=== PATIENT | male | born 1950 | race Two or more races ===

== ENCOUNTER 2020-04-11 12:33 | Inpatient (IN) | payer OTHER ==
[~2020-04-11] VITALS: Ht 180.3 cm; Wt 61.6 kg
[2020-04-11] VITALS (7 sets, daily range): BP systolic 122–157; BP diastolic 44–74
[2020-04-11 13:28] LABS: Basophils # (auto) 0.1 10 ^3/uL (0-0.2); Eosinophils # (auto) 0.5 10 ^3/uL (0-0.8); White Blood Cell 13.6 10^3/uL (4.4-10.8)
[2020-04-11 13:32] LABS: Basophils % (auto) 1.1 % (0.0-2.0); Eosinophils % (auto) 3.7 % (0.0-7.0); Lymphocytes # (auto) 2.3 10 ^3/uL (0.4-5.4); Lymphocytes % (auto) 16.8 % (10.0-50.0); Mean Corpuscular Hemoglobin 30.9 pg (28.0-32.0); Mean Corpuscular Hgb Conc. 34.2 g/dL (32.0-36.0); Mean Corpuscular Volume 90.3 fL (80.0-100.0); Monocytes % (auto) 7.6 % (0.0-12.0); Neutrophils # (auto) 9.6 10 ^3/uL (1.6-8.6); Neutrophils % (auto) 70.8 % (37.0-80.0); Platelet Count (auto) 316 10^3/uL (140-450); Red Blood Cells 1.55 10^6/uL (4.5-5.90); Red Cell Distribution Width 17.1 % (11.8-14.3)
[2020-04-11 13:44] LABS: Albumin 3.4 g/dL (3.4-5.0); BUN/Creatinine Ratio 29.4; INR 1.08 (0.9-1.15); Magnesium 1.7 mg/dL (1.6-2.6); Partial Thromboplastin Time 23.7 sec (23.0-31.2); Potassium 3.8 mmol/L (3.5-5.1)
[2020-04-11 13:46] LABS: Hemoglobin 4.8 g/dL (13.5-17.5)
[2020-04-11 13:49] LABS: Bilirubin, Total 0.3 mg/dL (0.2-1.0); Total Protein 6.8 g/dL (6.4-8.2)
[2020-04-11] MEDS ORDERED: PANTOPRAZOLE 40 MG/10 ML VIAL INJ IV ONE (14:45)
[2020-04-11] MEDS ORDERED: PANTOPRAZOLE 40mg/50ML NS AE 50 ML IV ONE (14:45)
[2020-04-11] MEDS ORDERED: LORazepam 2MG/ML-1ML VIAL IV PRN (17:45)
[2020-04-11] MEDS ORDERED: NITROGLYCERIN 0.4 MG SL TAB SL PRN (17:45)
[2020-04-11] MEDS ORDERED: D5W/SOD CHLO 0.9% 1,000 ML IV SCH (17:45)
[2020-04-11] MEDS ORDERED: MORPHINE SULF INJ 2 MG/ML SYRINGE 1ML IV PRN (17:45)
[2020-04-11] MEDS: PANTOPRAZOLE 40 MG/10 ML VIAL INJ IV SCH (22:00)
[2020-04-11] MEDS: MORPHINE SULF INJ 2 MG/ML SYRINGE 1ML IV PRN (23:24)
[2020-04-12] VITALS (10 sets, daily range): BP systolic 139–162; BP diastolic 67–77
[2020-04-12] MEDS: MORPHINE SULF INJ 2 MG/ML SYRINGE 1ML IV PRN ×3 (02:33→20:52)
[2020-04-12 06:13] LABS: Hematocrit 24.9 % (41.0-53.0); Hemoglobin 8.8 g/dL (13.5-17.5); Mean Corpuscular Hemoglobin 31.4 pg (28.0-32.0); Mean Corpuscular Hgb Conc. 35.3 g/dL (32.0-36.0); Mean Corpuscular Volume 88.8 fL (80.0-100.0); Platelet Count (auto) 258 10^3/uL (140-450); Red Cell Distribution Width 14.8 % (11.8-14.3); White Blood Cell 10.5 10^3/uL (4.4-10.8)
[2020-04-12 06:28] LABS: Basophils % (manual) 0 (0.0-2.0); Blast Cells 0; Metamyelocytes % 0; Myelocytes % 0; Promyelocytes % 0; Reactive Lymphocytes 0
[2020-04-12 06:44] LABS: Potassium 3.6 mmol/L (3.5-5.1)
[2020-04-12 06:54] LABS: Albumin 3.2 g/dL (3.4-5.0); BUN/Creatinine Ratio 26.1; Bilirubin, Total 0.6 mg/dL (0.2-1.0); Calcium 8.8 mg/dL (8.5-10.1); Total Protein 6.2 g/dL (6.4-8.2)
[2020-04-12 07:02] LABS: Band Neutrophils % (manual) 2; Lymphocytes % (manual) 14 (10.0-50.0); Monocytes % (manual) 5 (0-12)
[2020-04-12 07:03] LABS: Eosinophils % (manual) 10 (0-7)
--- NOTE | 2020-04-12 07:30 | NUR ---
Opening Shift Note Assumed patient care from [facility] RN, Kim. Patient currently sitting up in bed. Patient is AOx4. Per patient, he is continuing to have aching pain on left chest, per patient, he fell on his left side two days ago. Patient denies shortness of breath at this time, respirations are even and unlabored. Patient is aware of NPO status and need for urine sample. Patient verbalized understanding at this time.
[2020-04-12] MEDS: PANTOPRAZOLE 40 MG/10 ML VIAL INJ IV SCH ×2 (08:54→20:51)
[2020-04-12] MEDS: LABETALOL HCL 5 MG/ML 4ML SYRINGE IV PRN (09:30)
--- NOTE | 2020-04-12 10:00 | NUR ---
at Bedside Dr. Vinson at bedside discussing plan of care with Patient. Per Dr. Vinson obtain nephrology consult from rehabilitation manager nephrology.
--- NOTE | 2020-04-12 10:50 | NUR ---
at Bedside Dr. Araya at bedside discussing plan of care with patient. New orders received for stool occult.
--- NOTE | 2020-04-12 11:00 | NUR ---
WOUND CARE NOTE: IN TO SEE PATIENT AT THIS TIME PER WOUND CARE CONSULT REQUEST. PATIENT RECENTLY ADMITTED TO [facility] WITH DIAGNOSIS OF RENAL FAILURE, ANEMIA, GI BLEED. CURRENT CARLA SCORE IS 14. PATIENT ABLE TO SELF TURN/REPOSITION SELF. HE HAS LONGTIME HISTORY WITH DM. WOUND PHOTOS TAKEN UPON ADMIT BY BEDSIDE NURSE FOR REFERENCE. 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 NO OPEN OR DRAINING AREAS NOTED. LEFT OPEN TO AIR. LEFT # 1 TOE HAS BLACK ESCHAR DFU. NO OPEN DRAINING AREAS NOTED. LEFT OPEN TO AIR. HE HAS TWO VERY SMALL PARTIAL THICKNESS WOUNDS TO THE SACRUM/BUTTOCKS, WITH A 0.2 X0.2 CM WOUND TO THE LEFT SACRUM, 0.3 X 0.3 CM TO THE RIGHT. APPLIED ZGUARD, OPTIFOAM GENTLE SACRAL DRESSING. PERIWOUND SKIN IS SLOW TO MILLA AT INTRAGLUTEAL AREAS. NO OTHER WOUNDS SEEN AT THIS TIME. RECOMMEND: FREQUENT TURN SCHEDULE Q 2 HOURS, PRN CONDITION PERMITS, WITH PRESSURE REDISTRIBUTION USING PILLOWS/WEDGES, ELEVATION OF BLE UP ON PILLOWS TO OFFLOAD HEELS, BID/PRN APPLICATION WITH ZGUARD, OPTIFOAM GENTLE SACRAL DRESSING, DIETARY CONSULT, SKIN/WOUND CARE PLAN, CONTINUED MONITORING BY WOUND CARE TEAM. Addendum: 04/12/20 at 1758 by Theodora Christensen RN Amended: Links added.
--- NOTE | 2020-04-12 11:19 | NUR ---
Nutrition Consult Consider changing diet to CCHO 60g, Renal Specific 60g protein, 2g K and Na, low phos Consider adding Nephrovite and Vitamin C 500 mg BID Est energy needs 0493-0354 kcal (25-30 kcal/kg BW 61.6kg) Est protein needs 49-55g (0.8-0.9g/kg BW 61.6kg r/t CKD/SENA no HD) Will reassess prn. Addendum: 04/12/20 at [address] Amended: Links added.
--- NOTE | 2020-04-12 11:30 | NUR ---
Wound Care medical records secretary, Alisia at bedside. Per Alisia, continue with Zgaurd and optifoam to sacral area.
--- NOTE | 2020-04-12 11:40 | NUR ---
Sacral Dressing Partial bed bath performed with assistance from al Robison. Sacral area cleaned, Z guard and optifoam applied; offset weight with pillow-patient positioned to right side. Safety precautions in place, call light within reach. Will continue to monitor q1hr and PRN.
[2020-04-12] MEDS: D5W/SOD CHLO 0.9% 1,000 ML IV SCH ×2 (13:59→20:51)
--- NOTE | 2020-04-12 14:14 | NUR ---
at Station Dr. Barbosa at station. Per , continue with fluid administration at this time.
--- NOTE | 2020-04-12 15:35 | NUR ---
Urine Sample Urine sample sent to lab; attempted to call but no answer at this time. Clear, yellow urine, no odor noted. Emptied 650cc from urinal. No bowel movement at this time, patient is aware to call when he has a bowel movement for stool sample. Patient verbalized understanding. Patient repositioned in bed to right side at this time. No signs of distress noted, respirations even and unlabored. Will continue to monitor q1hr and PRN; safety precautions are in place, call light within reach.
[2020-04-13 05:00] VITALS: BP 172/79
[2020-04-13] MEDS: LABETALOL HCL 5 MG/ML 4ML SYRINGE IV PRN ×3 (05:34→14:55)
[2020-04-13 06:30] LABS: Hematocrit 22.2 % (41.0-53.0); Hemoglobin 7.7 g/dL (13.5-17.5); Mean Corpuscular Hemoglobin 31.3 pg (28.0-32.0); Mean Corpuscular Hgb Conc. 34.9 g/dL (32.0-36.0); Mean Corpuscular Volume 89.7 fL (80.0-100.0); Platelet Count (auto) 250 10^3/uL (140-450); Red Blood Cells 2.47 10^6/uL (4.5-5.90); White Blood Cell 10.5 10^3/uL (4.4-10.8)
[2020-04-13 06:35] LABS: Band Neutrophils % (manual) 0; Basophils % (manual) 0 (0.0-2.0); Blast Cells 0; Metamyelocytes % 0; Myelocytes % 0; Promyelocytes % 0; Reactive Lymphocytes 0
[2020-04-13 06:48] LABS: BUN/Creatinine Ratio 19.4; Calcium 8.3 mg/dL (8.5-10.1); Potassium 4.1 mmol/L (3.5-5.1)
[2020-04-13 07:16] LABS: Eosinophils % (manual) 15 (0-7); Lymphocytes % (manual) 19 (10.0-50.0); Monocytes % (manual) 8 (0-12)
--- NOTE | 2020-04-13 07:30 | NUR ---
Opening Shift Note Assumed patient care from NOC Rn. Patient currently sitting up in bed for breakfast. No signs of distress at this time. Patient placed on SCDs per orders on 04/12. Respirations even and unlabored. Will continue to monitor q1hr and PRN.
[2020-04-13 09:00] VITALS: BP 167/76
[2020-04-13] MEDS: PANTOPRAZOLE 40 MG/10 ML VIAL INJ IV SCH ×2 (09:48→21:58)
[2020-04-13] MEDS ORDERED: GOLYTELY 4L KIT PO ONE (10:00)
--- NOTE | 2020-04-13 10:00 | NUR ---
at Bedside Dr. Araya at bedside discussing plan of care with patient. Per Dr. Araya, recommends endoscopy and colonoscopy for tomorrow. Patient is AOx4 and agreeable at this time. Patient's daughter, Magali, has been notified and is also agreeable with plan of care.
[2020-04-13 13:00] VITALS: BP 90/55
--- NOTE | 2020-04-13 13:54 | NUR ---
Bowel Prep Dudleyly provided to patient for bowel prep. Educated need for bowel prep for colonoscopy tomorrow. Patient's daughter is on phone, teaching reinforced with her. Both patient and daughter verbalized understanding. Patient encouraged to drink often, will continue to reinforce bowel prep. Will continue to monitor q1hr and PRN. Addendum: 04/13/20 at 1400 by TARYN BOO RN RN Daughter:
[2020-04-13] MEDS: D5W/SOD CHLO 0.9% 1,000 ML IV SCH (14:45)
--- NOTE | 2020-04-13 14:55 | NUR ---
BP Blood Pressure reported by MAGDALENE Freedman. BP currently 171/80 HR 73; BP medication administered, see EMAR. Fluids stopped at this time. Dr. Vinson aware; per Dr. Vinson, reassess at 1600, if BP does not decrease, give clonidine 0.2mg PO once.
--- NOTE | 2020-04-13 15:49 | NUR ---
BP Reassessed BP Reassessed BP 167/73. Will administer medication per MD orders. Addendum: 04/13/20 at 1605 by TARYN BOO RN RN Clonidine administered, see DWAYNE.
[2020-04-13] MEDS ORDERED: cloNIDine HCL 0.1 MG TAB PO ONE (16:00)
[2020-04-13 17:00] VITALS: BP 162/73
--- NOTE | 2020-04-13 17:00 | NUR ---
BP Reassessed Blood pressure reassessed post Clonidine administration. BP currently 136/77, HR 65. No signs of distress at this time, respirations even and unlabored, will continue to monitor q1hr and PRN. Safety precautions in place.
--- NOTE | 2020-04-13 18:29 | NUR ---
Consents/COVID Obtained consent for procedure per Dr. Araya orders. Patient and daughter, Magali (via telephone), verbalized understanding of risks and benefits of procedure as well as it's purpose as explained by MD. No objections at this time. Consents signed and covid swab obtained. Patient tolerated covid swab well, no signs of distress at this time. COVID swab signed in to lab, rags laborer aware. Patient encouraged to continue drinking Golytely as he is 1/3 finished at this time. Will continue to monitor q1hr and PRN.
--- NOTE | 2020-04-13 19:11 | NUR ---
Closing Shift Note Endorsed patient care from [facility] Nuris CASTRO. RN aware of pending EGD and colonoscopy tomorrow. Dr. Araya at station; per Dr. Araya, stool culture no longer needed at this time.
--- NOTE | 2020-04-13 19:15 | NUR ---
Opening Shift Note Assumed care of patient, awake and alert. No S/S of distress/SOB or pain. Instructed on POC and to call for assist PRN, will continue to monitor for changes Q1hr and PRN. patient in the lowest possible position with call light within reach. patient drinking golytley at this time. Encouraged to call to use the bathroom at this time.
[2020-04-13 20:00] VITALS: BP 143/77
--- NOTE | 2020-04-13 20:49 | NUR ---
Patient wanted his blood sugar checked, patient has a history of diabetes. Patients blood sugar at this time is 190mg/dl. No interventions needed at this time. Will continue to monitor patient.
[2020-04-13 22:00] VITALS: BP 149/79
--- NOTE | 2020-04-13 23:00 | NUR ---
Patient cleaned and changed, zgaurd applied to sacrum, no optifoam placed on at this time. Patient wanted to be placed back on bedpan stating that he had to poop some more.
--- NOTE | 2020-04-13 23:23 | NUR ---
Patient stated that he was feeling dizzy, blood sugar checked reading 141mg/dl. Patient currently drinking golytley for colonoscopy/egd to be done on 04/14. Patients blood pressure checked reading 143/77. Patient known to have low hgb. Will continue to monitor patient.
[2020-04-14] MEDS: D5W/SOD CHLO 0.9% 1,000 ML IV SCH ×3 (03:15→23:29)
--- NOTE | 2020-04-14 03:30 | NUR ---
Patient cleaned and changed. Patient still drinking golytley in preparation for colonoscopy and EGD. Will continue to monitor patient.
[2020-04-14 05:00] VITALS: BP 160/76
[2020-04-14] MEDS: LABETALOL HCL 5 MG/ML 4ML SYRINGE IV PRN ×4 (05:09→22:01)
[2020-04-14] MEDS ORDERED: GOLYTELY 4L KIT PO ONE (06:00)
--- NOTE | 2020-04-14 06:10 | NUR ---
Blood pressure rechecked per protocol after giving labetalol. Blood pressure reading 172/75 with a heart rate of 74. Hospitalist paged.
--- NOTE | 2020-04-14 06:52 | NUR ---
PATIENT STATED THAT HE WOULD NOT DRINK ANYMORE GOLYTLEY UNTIL HIS BLOOD PRESSURE WAS FIXED. AWAITING CALLBACK FROM .
[2020-04-14 08:34] VITALS: BP 156/77
[2020-04-14] MEDS: PANTOPRAZOLE 40 MG/10 ML VIAL INJ IV SCH (09:48)
[2020-04-14] MEDS ORDERED: MIDAZOLAM HCL 5 MG/ML-1ML VIAL ONE (10:05)
[2020-04-14] MEDS ORDERED: LIDOCAINE VISCOUS 2% 15ML UD ONE (10:05)
[2020-04-14] MEDS ORDERED: SODIUM CHLORIDE LOCK 10 ML ONE (10:05)
[2020-04-14] MEDS ORDERED: fentaNYL CITRATE 100 MCG/2 ML VL ONE (10:06)
[2020-04-14] MEDS ORDERED: diphenhdrAMINE HCL 50 MG/1 ML VL ONE (10:06)
[2020-04-14] MEDS ORDERED: FLUMAZENIL 0.1 MG/ML INJ 10ML MDV IV ONE (10:07)
[2020-04-14] MEDS ORDERED: NALOXONE HCL 0.4 MG/ML VIAL ONE (10:07)
[2020-04-14] MEDS ORDERED: PANTOPRAZOLE 40 MG TAB PO ONE (12:30)
[2020-04-14 13:00] VITALS: BP 149/91
[2020-04-14 16:35] VITALS: BP 177/86
[2020-04-14 18:44] LABS: Urine WBC None Seen /hpf (0 - 3)
[2020-04-14 19:20] LABS: Protein, Urine 35.5 mg/dL (0.0-11.9)
--- NOTE | 2020-04-14 19:30 | NUR ---
Opening shift note Received report from day shift RNRosangela who stated she attempted to place a Walker but she took it out as the patient wanted to use the urinal and demonstrate that he could. Patient is A&Ox4, respirations even and non-labored with no s/s of distress or c/o pain at this time. Urinal bedside containing 250 mL of pink tinged urine. Patient incontinent of dark brown liquid stool. Bathed patient, bedding/gown change with INTELLIGENT SYSTEMS ENGINEER. Noted small skin tear to right buttock. Placed patient in position of comfort. Bed in lowest locked position with 2 side rails up, call light within reach. Will continue to monitor Q1hr and PRN.
[2020-04-14 19:31] LABS: Urine Bacteria NONE SEEN /hpf (None Seen); Urine Blood 3+ /uL (Negative)
--- NOTE | 2020-04-14 20:30 | NUR ---
Patients daughter called Spoke with Magali. Discussed patient status and answered questions regarding discharge/procedures.
[2020-04-14 22:00] VITALS: BP 154/76
[2020-04-14] MEDS: PANTOPRAZOLE 40 MG TAB PO SCH (22:01)
[2020-04-15 05:00] VITALS: BP 151/74
--- NOTE | 2020-04-15 05:30 | NUR ---
Patient resting Respirations even and non-labored with no s/s of distress at this time.
[2020-04-15 07:15] LABS: Hematocrit 22.3 % (41.0-53.0); Hemoglobin 7.8 g/dL (13.5-17.5); Mean Corpuscular Hemoglobin 31.8 pg (28.0-32.0); Red Blood Cells 2.45 10^6/uL (4.5-5.90)
[2020-04-15 07:25] LABS: Mean Corpuscular Volume 90.8 fL (80.0-100.0); Platelet Count (auto) 241 10^3/uL (140-450); Red Cell Distribution Width 15.5 % (11.8-14.3); White Blood Cell 10.8 10^3/uL (4.4-10.8)
--- NOTE | 2020-04-15 07:27 | NUR ---
Closing shift note Patient resting without s/s of distress at this time. Endorsed care to day shift RNEvelia.
[2020-04-15 07:31] LABS: Band Neutrophils % (manual) 0; Basophils % (manual) 0 (0.0-2.0); Blast Cells 0; Metamyelocytes % 0; Myelocytes % 0; Promyelocytes % 0; Reactive Lymphocytes 0
[2020-04-15 07:51] LABS: Albumin 2.6 g/dL (3.4-5.0); Calcium 8.3 mg/dL (8.5-10.1); Potassium 3.9 mmol/L (3.5-5.1)
[2020-04-15 07:54] LABS: BUN/Creatinine Ratio 10.2; Bilirubin, Total 0.3 mg/dL (0.2-1.0); Eosinophils % (manual) 18 (0-7); Lymphocytes % (manual) 16 (10.0-50.0); Monocytes % (manual) 8 (0-12); Total Protein 5.3 g/dL (6.4-8.2)
--- NOTE | 2020-04-15 07:57 | NUR ---
Opening Shift Note Received report from second shift supervisor nurse, assumed care of patient. Patient awake and alert sitting on beside chair eating breakfast. No S/S of distress/SOB. Informed by COTTON OPENER of high blood pressure of 169/80. Medicated patient for high blood pressure. Instructed on POC and to call for assist, call light within reach. Will continue to monitor for changes Q1hr and PRN.
--- NOTE | 2020-04-15 08:30 | NUR ---
SPOKE TO FAMILY SPOKE TO DAUGHTER TAWANDA, PASSWORD VERIFIED. DESCRIBED PATIENT STATUS AND ANSWERED ANY QUESTIONS REGARDING THE PLAN OF CARE.
[2020-04-15] MEDS: LABETALOL HCL 5 MG/ML 4ML SYRINGE IV PRN ×3 (08:36→22:24)
[2020-04-15 09:00] VITALS: BP 169/80
--- NOTE | 2020-04-15 09:30 | NUR ---
Rechecked blood pressure Checked blood pressure post medication. BP now 142/69, will continue to monitor BP. Patient instructed to call if assistance needed, call light within reach.
[2020-04-15] MEDS: PANTOPRAZOLE 40 MG TAB PO SCH ×2 (09:47→22:23)
[2020-04-15] MEDS: D5W/SOD CHLO 0.9% 1,000 ML IV SCH (12:31)
--- NOTE | 2020-04-15 12:37 | NUR ---
Pt is an alert and oriented male that is marshallese-speaking only. Contacted pt's daughter, Magali,who stated pt lives out of the area ( [place]) with his son. Pt was visiting her because her brother had to go out of town for the weekend. Pt has a fww, w/c,cane, and shower chair in the home. Daughter states that pt has been declining in his health over the past few months and her brother needs more assistance with him. Provided information to [facility] program ) for In home care that will be covered by patient's [facility]. Pt could benefit from home health and bsc upon discharge. Requested order from nurse to obtain from physician and notified CM to obtain authorization as well as contracted vendor. Provided POA form for pt per daughter's request. Pt will have transportation home upon discharge. Addendum: 04/15/20 at 1310 by JENAE PRICE Amended: Links added.
--- NOTE | 2020-04-15 12:47 | NUR ---
Nutrition Followup Note Wt 61.6 kg Pt was asleep with no family at bedside at time of rounds. per records pt s/p EGD. pt is currently on CCHO 60 gm renal std diet with adequate Po of 75% x 2 per RN doc Est energy needs 3338-5579 kcal (25-30 kcal/kg BW 61.6kg) Est protein needs 49-55g (0.8-0.9g/kg BW 61.6kg r/t CKD/SENA no HD) Will reassess prn. Labs: BUN 22 H CREAT 2.15 H CA 8.3 L ALB 2.6 L GLU 226 H BM: Pt with 4 BMs yesterday diarr per Rn note Skin: BS 12 high risk, full details in certified social workers in health care note PES: Altered nutrition related lab values r/t current medical condition aeb elevated RFTs, hyperglycemia, hypoalb Comments Will continue to monitor PO status, skin status, pertinent labs and weight trends. Will f/u in 3-5 days Rec: 1) Consider diet of CCHO 60g, Renal Specific 2g K, 2gNa, low phos, 50g protein 2) Consider adding Nephrovite and Vitamin C 500 mg BID 3) continue current plan of care
[2020-04-15 13:00] VITALS: BP 151/76
--- NOTE | 2020-04-15 13:53 | NUR ---
1340 04/15/2020 - Contacted [facility] rehabilitation case coordinator at [phone] to inform her of pending discharge plan for patient. I requested a list of contracted DME vendors and Home Health agencies. Patient returning [place] to [place]. airport duty manager stated she would send the DME order to [facility] and fax a copy of authorization. She also provided me with contracted agencies. [facility]([phone]) [facility] ([phone]), [employer] [facility] ([phone]) and [employer] [facility] ([phone]). Pending delivery of DME and awaiting order for home health.
[2020-04-15] MEDS: MORPHINE SULF INJ 2 MG/ML SYRINGE 1ML IV PRN (14:00)
--- NOTE | 2020-04-15 14:17 | NUR ---
CALLED TAWANDA PATIENTS DAUGHTER, PASSWORD VERIFIED. ATTEMPTED TO GET HOME MEDICATION INFORMATION, TAWANDA STATED WILL CALL BACK ONCE SHE HAS THE LIST OF MEDICATION ON HAND.
--- NOTE | 2020-04-15 14:50 | NUR ---
TAWANDA CALLED BACK (PASSWORD VERIFIED) PROVIDED PATIENT HOME MEDICATION LIST.
[2020-04-15] MEDS ORDERED: METF-370 PO (15:04)
[2020-04-15] MEDS ORDERED: CLOP75TA28 PO (15:04)
[2020-04-15] MEDS ORDERED: HYDR-4296 PO (15:04)
[2020-04-15] MEDS ORDERED: AMLO5TAB15 PO (15:04)
[2020-04-15] MEDS ORDERED: GLIM4TAB42 PO (15:04)
[2020-04-15] MEDS ORDERED: ATOR40TA52 PO (15:04)
[2020-04-15] MEDS ORDERED: ASPI-231 PO (15:04)
[2020-04-15] MEDS ORDERED: LOSA-39 PO (15:04)
[2020-04-15] MEDS ORDERED: HYDR12.56 PO (15:04)
--- NOTE | 2020-04-15 16:07 | NUR ---
1600 04/15/20 - Contacted [facility] PT regarding consult for PT eval, spoke with Chris who confirmed receiving consult. Pending completion of PT eval.
--- NOTE | 2020-04-15 17:08 | NUR ---
Informed by BEEF CATTLE SPECIALIST of high blood pressure of 163/82. Medicated patient with Labetalol 10 mg slow IVP for high blood pressure see eMAR.
[2020-04-15 17:22] VITALS: BP 163/82
--- NOTE | 2020-04-15 18:20 | NUR ---
BP RECHECKED 160/80, HR 88
--- NOTE | 2020-04-15 18:45 | NUR ---
BR CHECKED,SBP DOWN TO 150/70
--- NOTE | 2020-04-15 19:25 | NUR ---
Opening shift note Assumed care of patient from day shift RNEvelia. Patient lying awake in bed, A&Ox4, respirations even and non-labored with no s/s of distress or c/o pain at this time. Discussed POC with patient and repositioned for comfort. Advised patient to call for assistance, bed alarm in place. Urinal bedside with 300ml of clear yellow urine which was replaced. Bed in lowest locked position with 2 side rails up. Call light within reach. Will continue to monitor Q1hr and PRN.
[2020-04-15 21:56] VITALS: BP_SYST 126; BP_SYST 162; BP_DIAS 77; BP_DIAS 83
[2020-04-16] MEDS: D5W/SOD CHLO 0.9% 1,000 ML IV SCH (02:16)
[2020-04-16 05:00] VITALS: BP 172/80
[2020-04-16] MEDS: LABETALOL HCL 5 MG/ML 4ML SYRINGE IV PRN (05:19)
[2020-04-16 06:06] LABS: Hemoglobin 7.9 g/dL (13.5-17.5); Mean Corpuscular Hemoglobin 31.5 pg (28.0-32.0)
[2020-04-16 06:09] LABS: Hematocrit 22.6 % (41.0-53.0); Mean Corpuscular Hgb Conc. 34.8 g/dL (32.0-36.0); Mean Corpuscular Volume 90.5 fL (80.0-100.0); Platelet Count (auto) 256 10^3/uL (140-450); Red Cell Distribution Width 15.8 % (11.8-14.3); White Blood Cell 10.2 10^3/uL (4.4-10.8)
[2020-04-16 06:26] LABS: Potassium 4.1 mmol/L (3.5-5.1)
--- NOTE | 2020-04-16 06:26 | NUR ---
Patient resting Respirations even and non-labored without s/s of distress at this time.
[2020-04-16 06:34] LABS: Albumin 2.6 g/dL (3.4-5.0); BUN/Creatinine Ratio 9.3; Bilirubin, Total 0.3 mg/dL (0.2-1.0); Calcium 8.3 mg/dL (8.5-10.1); Total Protein 5.7 g/dL (6.4-8.2)
[2020-04-16 06:49] LABS: Basophils % (manual) 0 (0.0-2.0); Blast Cells 0; Metamyelocytes % 0; Myelocytes % 0; Promyelocytes % 0; Reactive Lymphocytes 0
[2020-04-16 07:36] LABS: Band Neutrophils % (manual) 3; Eosinophils % (manual) 20 (0-7); Lymphocytes % (manual) 10 (10.0-50.0); Monocytes % (manual) 5 (0-12)
[2020-04-16 09:00] VITALS: BP 164/82
[2020-04-16] MEDS: PANTOPRAZOLE 40 MG TAB PO SCH (10:03)
--- NOTE | 2020-04-16 11:45 | NUR ---
1000 04/16/20 - Contacted by [employer] vendor for DME who confirmed receiving faxed request for bedside commode. Pending review and delivery to patient at bedside.
[2020-04-16] MEDS ORDERED: cloNIDine HCL 0.1 MG TAB PO ONE (12:00)
[2020-04-16 12:14] VITALS: BP 172/86
--- NOTE | 2020-04-16 12:21 | NUR ---
1200 04/16/20 - Contacted by [facility] caser shoe parts Bobbi who provided authorizations for [facility] [id number] and for home health agency [id number].
[2020-04-16 13:00] VITALS: BP 182/80
--- NOTE | 2020-04-16 14:34 | NUR ---
REFUSED DC PHOTOS BECAUSE HIS SHOES ARE ALREADY ON.
--- NOTE | 2020-04-16 15:10 | NUR ---
Discharge instructions given as ordered. Encourage to follow up with PMD as instructed. All questions and concerns addressed. Patient verbalized understanding. Medication reconciliation form completed and copy given to patient. IV removed with catheter intact, pressure dressing applied . Telemetry unit returned to ICU. Patient taken to vehicle via wheelchair with all personal belongings, accompanied by staff and family member. No distress noted at time of departure.
--- NOTE | 2020-04-16 15:17 | NUR ---
1420 04/16/20 - Contacted by [facility], children's program coordinator who informed me the DME (bedside commode) will be delivered between 3-5 PM at daughter's (Magali) home.
--- NOTE | 2020-04-16 15:51 | NUR ---
D/C Planning Per social service consult for home health physical therapy, medication management, vitals and safety evaluation. Faxed clinical information to [facility]. [facility] will accept patient within 24-48hrs upon d/c day.
== END 2020-04-16 15:15 | disposition home health service (06) | DRG 377 ==
LOC: ER 12:33 → EDBD 12:33 → TELE-EAST 12:34 → TELE-WESTW 20:52
PROVIDERS: ADMIT Family Medicine; ATTEND Family Medicine
PROC: 30233N1 Transfusion of Nonautologous Red Blood Cells into Peripheral Vein, Percutaneous Approach (ICD-10-PCS; 2020-04-11)
PROC: 0DJD8ZZ Inspection of Lower Intestinal Tract, Via Natural or Artificial Opening Endoscopic (ICD-10-PCS; principal; 2020-04-14 12:00)
PROC: 0DB68ZZ Excision of Stomach, Via Natural or Artificial Opening Endoscopic (ICD-10-PCS; 2020-04-14 12:00)
DX: K29.71 Gastritis, unspecified, with bleeding (principal); I50.23 Acute on chronic systolic (congestive) heart failure; N17.9 Acute kidney failure, unspecified; I13.0 Hypertensive heart and chronic kidney disease with heart failure and stage 1 through stage 4 chronic kidney disease, or unspecified chronic kidney disease; K29.81 Duodenitis with bleeding; E11.621 Type 2 diabetes mellitus with foot ulcer; E11.21 Type 2 diabetes mellitus with diabetic nephropathy; E11.40 Type 2 diabetes mellitus with diabetic neuropathy, unspecified; E11.65 Type 2 diabetes mellitus with hyperglycemia; N18.9 Chronic kidney disease, unspecified; I71.2 Thoracic aortic aneurysm, without rupture; E11.22 Type 2 diabetes mellitus with diabetic chronic kidney disease; L89.620 Pressure ulcer of left heel, unstageable; Z20.828 Contact with and (suspected) exposure to other viral communicable diseases; D64.9 Anemia, unspecified; N28.1 Cyst of kidney, acquired; Z74.01 Bed confinement status; Z79.4 Long term (current) use of insulin; Z82.49 Family history of ischemic heart disease and other diseases of the circulatory system; Z86.79 Personal history of other diseases of the circulatory system; Z83.3 Family history of diabetes mellitus
CPT/HCPCS: 36415; 71045; 74176; 76775; 80048; 80053; 81001; 82570; 82962; 83036; 83735; 83880; 84154; 84156; 84300; 84484; 85007; 85025; 85027; 85379; 85610; 85730; 86850; 86900; 86901; 86920; 87040; 87086; 93005; 99291; C9113; G0378; J2250; J3490; J7042